=== PATIENT | male | born 1985 | race Caucasian/White ===

== ENCOUNTER 2016-06-07 13:02 | Emergency (ER) | payer MEDICAID ==
[~2016-06-07] VITALS: Ht 193 cm; Wt 117.9 kg
[~2016-06-07 13:02] MED LIST: CIPRO 500MG TA500 MG PO; DIPHENHYDRAMINE TP; FLAGYL500 M1 PO; FLEXERIL10 MG PO; KEFLEX 500MG.500 MG PO; LORTAB 5/500 501 TAB PO; NAPROSYN 500MG500 MG PO; NEXIUM20 MG PO; NOMEDS; NOMEDS XX; NORCO 325 MG-51 TAB PO; PERCOCET 10 MG1 EACH PO; PERCOCET 5/3251 EACH PO; PERCOCET1 TAB PO; PREDNISONE 20MG20 MG PO; PREDNISONE20 MG PO; TORADOL10 M1 PO; ZANTAC 150150 MG PO; ZITHROMAX Z PA250 MG PO
--- NOTE | 2016-06-07 14:42 | Urgent Treatment Center Report ---
See Addendum History of Present Issue Date/Time Seen by Provider 06/07/16 0642 Visit Reason Pt arrived:Walked Presenting Problem:R SHOULDER PAIN Location if Accident: Onset of symptoms date/time:05/24/16/ or onset unknown for:MEDICAL HX UNKNOWN Have you (or family members/close friends) recently traveled outside the [place]? N If Yes, where/when: Have you had exposure to infectious disease within the past month? TB? Other? Specify: c/o right shoulder pain x 2 - 3 weeks. No known injury. Lift a lot for work but can't pinpoint exactly when symptoms started. pain currently 5/10 right anterior shoulder, aching. Pain intermittent, aching and throbbing w/ squeezing and occasionally sharp. Has noticed N/T in right hand but can't pinpoint where "just the whole hand and all the fingers. Just come and goes." Occasional ibuprofen hasn't really helped but hasn't taken it much. Limited ROM right shoulder w/ weakness. Denies any neck pain or limited neck ROM. Source patient Exam Limitations clinical condition (pain) ALLERGIES Coded Allergies: No Known Allergies (12/10/15) Home Medications Reported Medications Esomeprazole Magnesium (Nexium) 20 MG PO DAILY History Medical History General CAD? No Angina: No IN: No Hypertension? No Hyperlipidemia? No CHF? No DVT? No PE? No COPD? No Asthma? No Anemia? No GERD? No Gastric ulcers? No GI Bleed? No Hernia? No Thyroid Problems? No Hypothyroidism? No CVA? No Seizures? No Diabetes? No Renal Insuffiency? No UTI? No Stones? No BPH? No GB Disease: Yes Nephritic Syndrome? No Asplenia? No Hepatitis? No Sickle Cell Disease? No Arthritis? No Migraines? No Cataracts? No Glaucoma? No MRSA? No HIV? No TB? No Anxiety? No Depression? No Cancer? No More? No Immunization HX DT/Tetanus UNKNOWN Flu NEVER Pneumonia NEVER Surgical Hx Previous Surgery?Y APPENDECTOMY GALL BLADDER Family History Family HX Diabetes Yes CAD No Hypertension Yes Hyperlipidemia No Cancer No TB No Social History Smoking Hx Smoker: Current Every Day Smoker Tobacco: Yes Type Cigarettes Packs/day 1 1/2 - 2 Packs Are you/the child exposed to second-hand smoke: Yes Alcohol Alcohol: No Review of Systems All Other Systems Reviewed and Negative Constitutional denies fever, denies malaise, weakness Respiratory denies shortness of breath Cardiovascular denies chest pain Skin denies lesions, denies rash Psychiatric/Neurological denies headache Physical Exam Vital Signs Vital Signs Date Time Temp Pulse Resp B/P Pulse O2 O2 Flow FiO2 Ox Delivery Rate 06/07 1523 20 06/07 1340 98.1 84 18 121/79 99 06/07 1337 98.1 84 18 121/79 99 06/07 1335 98.1 84 18 121/79 99 06/07 1305 97.7 87 18 147/94 91 General Appearance normal appearance, no apparent distress Respiratory Status No: respiratory distress. Cardiovascular no peripheral edema Peripheral Pulses Pulses normal Yes (radial) Back no vertebral tenderness, decreased range of motion (right shoulder), muscle spasm (right trapezius neck) Extremities limited range of motion (right shoulder, all directions), tenderness right posterior shoulder/neck consistent w/ right trapezius Strength 4 Upper Ext (R) (but w/ resistance, pain rt shd), 5 Upper Ext (L) Neurologic alert Skin warm/dry Medical Decision Making LABS/Meds/Orders Pt receiving controlled substance in ED? No Results/Orders Current Medication Orders Sig/Óscar Start time Last Medication Dose Route Stop Time Status Admin Ketorolac 60 MG ONCE ONE 06/07 1500 DC 06/07 Tromethamine IM 06/07 1501 1523 Ketorolac 0 .STK-MED ONE 06/07 1459 DC Tromethamine .ROUTE Orders Procedure Date/time Status [id number] VIEWS 06/07 1452 Active XRAY/CT/US XRAY/CT/US 1 XRAY C-spine XR interpretation by discussed w/radiologist (read report) Xray Results no fracture seen, normal disc space Comment shoulder pending XRAY/CT/US 2 XRAY shoulder (rt) XR interpretation by reviewed by me Xray Results no fracture seen (waiting on final report), pt no longer wants to continue to wait. Agrees to FU w/ PCP for final results Progress [facility] Progress Notes Date 06/07/16 Time 1624 Comment pain improved 2/5, w. toradol. Reviewed cspine xray. Shoulder report still pending but has been read. Waiting for final reading. Pt ready to go. Xray appears normal. Discussed POC if xray normal. Requesting discharge be started Departure Departure Time of Disposition 1634 Disposition DC Home or Self Care(routine) Clinical Impression Primary Impression: Strain of right trapezius muscle Qualifiers: Encounter type: initial encounter Qualified Code: S46.811A - Strain of other muscles, fascia and tendons at shoulder and upper arm level, right arm, initial encounter Secondary Impressions: Muscle spasm of right shoulder Condition STABLE Referrals Valente SANDHU,Timbo (Family) Immediately for new or worsening symptoms or if no noticeable improvement w/ naproxen and flexeril Patient Instructions DI for Back Spasm, DI for Shoulder Sprain, Nonsteroidal Anti-inflammatory Drugs (Alternative Therapy) Additional Instructions Read discharge instructions Shoulder xray final report still pending. Please be sure to Follow up with primary care for final result. Anti-inflammatories very important. Do not take more then prescribed and do not take additional NSAIDs (ibuprofen, motrin, aleve, advil) as discussed. Tylenol as needed is ok. You received toradol in clinic around 1500. Take naproxen this evening before bedtime. Muscle relaxer as needed for spasm/tightness Local heat x 15-20mins 3-4 times a day Continue to use shoulder/RUE but take it easy. no heavy lifting. FU w/ PCP in 2-3 days if no improvement. May need additional medications or imaging. Return to work Tuesday. Discharge Counseling Counseled pt/family regarding diagnosis, test results, medications/RX, home care, follow up needs Prescriptions Current Visit Scripts NAPROXEN (NAPROXEN 500MG TAB) 500 MG PO BID #30 TAB take with food Cyclobenzaprine Hcl (Cyclobenzaprine) 5 MG PO TIDP PRN muscle spasm #12 TAB at 1631
--- NOTE | 2016-06-07 16:01 | RADIOLOGY REPORT PS360 ---
CERVICAL SPINE-2 TO 3 VIEWS HISTORY: right shoulder pain, right hand N/T ORDERING PHYSICIAN: SADIA RHOADES APRN PATIENT AGE: 30 years COMPARISON: None FINDINGS: Normal alignment. No fracture or dislocation. No lytic or blastic change. The disc spaces are well-preserved. No foraminal narrowing or prevertebral soft tissue swelling. IMPRESSION: Negative cervical spine.
[2016-06-07] MEDS ORDERED: NAPROXEN SODIU500 MG PO (16:34)
[2016-06-07] MEDS ORDERED: CYCLOBENZ5 MG PO (16:34)
[2016-06-07 16:46] VITALS: BP 121/79
--- NOTE | 2016-06-08 10:14 | RADIOLOGY REPORT PS360 ---
[id number] VIEWS HISTORY: right shoulder pain, right hand N/T ORDERING PHYSICIAN: SADIA RHOADES APRN PATIENT AGE: 30 years COMPARISON: None FINDINGS: No fracture or dislocation. The glenohumeral joint and acromioclavicular joint has an unremarkable appearance. There is a mixed density lesion involving the proximal shaft of the humerus measuring 4.8 cm in length involving the intramedullary region of the proximal humerus containing small lucent areas. The bone itself does not appear expanded and there is no overlying periosteal reaction. Etiology of this is uncertain. Differential diagnosis includes bone infarction, and chondroma, or chondrosarcoma. MRI of the humerus without and with contrast recommended for further evaluation. IMPRESSION: 1. No acute finding. 2. 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 Differential diagnosis includes bone infarction, in chondroma, or chondral sarcoma. Follow-up is recommended. Significant findings called to SADIA RHOADES APRN on 06/08/2016 10:10 AM.
== END 2016-06-07 16:47 | disposition home or self-care (01) ==
LOC: ER 13:02 → UTC 13:11 → ER 13:11 → UTC 16:47
DX: S29.012A Strain of muscle and tendon of back wall of thorax, initial encounter (principal)